=== PATIENT | female | born 1995 | race Caucasian/White ===

== ENCOUNTER 2021-05-17 18:44 | Emergency (ER) | payer SELFPAY ==
[~2021-05-17] VITALS: Ht 157.5 cm; Wt 63.5 kg
[~2021-05-17 18:44] MED LIST: IBUP-2213 PO
[2021-05-17 18:53] VITALS: BP 147/99
--- NOTE | 2021-05-17 19:04 | NUR ---
AMBULATED TO BED 11
--- NOTE | 2021-05-17 19:37 | NUR ---
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 PATIENT PRESENTS TO ED WITH INTERMITTENT PAIN AND DIARRHEA. PT CLAIMS NAUSEA AND DIARRHE W/O VOMITING; SKIN IS PINK/WARM/DRY; AAOX4 WITH EVEN AND STEADY GAIT; LUNGS CLEAR BL; HR EVEN AND REGULAR; PT DENIES ANY FEVER, CP, SOB, OR COUGH AT THIS TIME; PATIENT STATES PAIN OF 7/10 AT THIS TIME; VSS; PATIENT POSITIONED FOR COMFORT; HOB ELEVATED; BEDRAILS UP X2; BED DOWN. ER MD MADE AWARE OF PT STATUS. PT DENIES PMH, ALLERGIES, OR MEDS
--- NOTE | 2021-05-17 19:47 | NUR ---
ER MD AT BEDSIDE FOR PT EXAM
[2021-05-17] MEDS ORDERED: NACL 0.9% 1,000 ML IV ONE (19:50)
[2021-05-17] MEDS ORDERED: MORPHINE SULFATE 4 MG/ML SYR IVP ONE (19:50)
[2021-05-17 20:10] LABS: BASOPHILS # (AUTO) 0.1 K/uL (0.00-0.22); EOSINOPHILS # (AUTO) 0.1 K/uL (0-0.4); HEMATOCRIT 43.6 % (36-48); LYMPHOCYTES # (AUTO) 1.9 K/uL (2.5-16.5); MEAN CORPUSCULAR HEMOGLOBIN 28 pg (27-31); MEAN CORPUSCULAR HGB CONC 32 g/dL (33-37); MEAN CORPUSCULAR VOLUME 86.9 fL (80-94); MONOCYTES % (AUTO) 8.9 % (1.7-9.3); NEUTROPHILS # (AUTO) 8.6 K/uL (1.8-7.7); NEUTROPHILS % (AUTO) 73.1 % (42.2-75.2); PLATELET COUNT (AUTO) 323 K/uL (140-450); RED BLOOD CELL COUNT(AUTO) 5.01 MIL/uL (4.20-5.40); RED CELL DISTRIBUTION WIDTH 13.7 % (11.6-13.7); WHITE BLOOD COUNT (AUTO) 11.7 K/uL (4.8-10.8)
[2021-05-17 20:16] LABS: BILIRUBIN,URINE 1+ (NEGATIVE); BLOOD, URINE 3+ (NEGATIVE); COLOR,URINE YELLOW (YELLOW); LEUKOCYTE ESTERASE ,URINE TRACE (NEGATIVE); NITRITE, URINE NEGATIVE (NEGATIVE); UGLUCOSE NEGATIVE (NEGATIVE)
[2021-05-17 20:27] LABS: APPEARANCE,URINE HAZY (CLEAR)
[2021-05-17 20:30] LABS: RBC,URINE TOO NUMEROUS TO COUN /HPF (0-5); WBC,URINE 0-5 /HPF (0-5)
[2021-05-17 20:33] LABS: ALBUMIN 3.8 g/dL (3.4-5.0); ANION GAP 12.2 (8-16); CARBON DIOXIDE 24.5 mmol/L (21-32); CREATININE 0.8 mg/dL (0.6-1.3); POTASSIUM 3.7 mmol/L (3.5-5.1); TOTAL BILIRUBIN 0.3 mg/dL (0.0-1.0)
[2021-05-17] MEDS ORDERED: KETOROLAC 30 MG/ML VIAL IVP ONE (20:40)
[2021-05-17] MEDS ORDERED: TAMS0.4C96 PO (23:08)
[2021-05-17] MEDS ORDERED: IBUP-2213 PO (23:08)
[2021-05-17] MEDS ORDERED: ACET-8386 PO (23:08)
[2021-05-17 23:21] VITALS: BP 137/84
--- NOTE | 2021-05-17 23:21 | NUR ---
Patient discharged with v/s stable. Written and verbal after care instructions given and explained. Patient alert, oriented and verbalized understanding of instructions. Ambulatory with steady gait. All questions addressed prior to discharge. ID band removed. Patient advised to follow up with PMD. Rx of Hydrocodone/Acetaminophen, Ibuprofen, and Tamsulosin given. Patient educated on indication of medication including possible reaction and side effects. Opportunity to ask questions provided and answered. VSS, A/OX4, AMBULATORY, UNLABORED BREATHING, AND CALM DEMEANOR.
== END 2021-05-17 23:21 | disposition home or self-care (01) ==
LOC: MED 18:44
DX: R10.9 Unspecified abdominal pain (principal); R11.0 Nausea; R19.7 Diarrhea, unspecified
CPT/HCPCS: 36415; 74176; 80053; 81001; 81025; 84703; 85025; 87086; 96361; 96374; 96375; 99284; J1885; J2270; J7030

== ENCOUNTER 2021-06-29 09:54 | Emergency (ER) | payer SELFPAY ==
[~2021-06-29] VITALS: Ht 157.5 cm; Wt 62.6 kg
[~2021-06-29 09:54] MED LIST changes: +ACET-8386 PO; +TAMS0.4C96 PO
[2021-06-29 10:03] VITALS: BP 141/104
[2021-06-29] MEDS ORDERED: ONDANSETRON 4 MG/2 ML VIAL IVP ONE (10:25)
[2021-06-29] MEDS ORDERED: KETOROLAC 15 MG/ML VIAL IVP ONE (10:25)
[2021-06-29] MEDS ORDERED: NACL 0.9% 2,000 ML IV ONE (10:25)
--- NOTE | 2021-06-29 10:41 | NUR ---
25/F BIB SELF C/O LEFT SIDED FLANK PAIN SINCE THIS MORNING. STATES SHE WAS TOLD A FEW WEEKS AGO SHE HAD A KIDNEY STONE, STATES "I THINK ITS PASSING." REPORTING N/V THIS MORNING. SKIN IS PINK/WARM/DRY; AAOX4 WITH EVEN AND STEADY GAIT; LUNGS CLEAR BL; HR EVEN AND REGULAR; PT DENIES ANY FEVER, CP, SOB, OR COUGH AT THIS TIME; VSS; PATIENT POSITIONED FOR COMFORT; HOB ELEVATED; BEDRAILS UP X2; BED DOWN. ER MD MADE AWARE OF PT STATUS. MEDHX: DENIES ALLERGIES: NKA
[2021-06-29 11:09] LABS: BASOPHILS # (AUTO) 0.1 K/uL (0.00-0.22); BASOPHILS % (AUTO) 0.4 % (0.0-2.0); EOSINOPHILS # (AUTO) 0.1 K/uL (0-0.4); EOSINOPHILS % (AUTO) 0.4 % (0.0-4.0); HEMATOCRIT 43.7 % (36-48); HEMOGLOBIN 14.5 g/dL (12.0-16.0); LYMPHOCYTES # (AUTO) 1.8 K/uL (2.5-16.5); LYMPHOCYTES % (AUTO) 13.7 % (20.5-51.1); MEAN CORPUSCULAR HEMOGLOBIN 29 pg (27-31); MEAN CORPUSCULAR HGB CONC 33 g/dL (33-37); MEAN CORPUSCULAR VOLUME 86.3 fL (80-94); MONOCYTES # (AUTO) 0.5 K/uL (0.8-1.0); NEUTROPHILS # (AUTO) 10.9 K/uL (1.8-7.7); NEUTROPHILS % (AUTO) 81.5 % (42.2-75.2); PLATELET COUNT (AUTO) 346 K/uL (140-450); RED BLOOD CELL COUNT(AUTO) 5.06 MIL/uL (4.20-5.40); RED CELL DISTRIBUTION WIDTH 13.4 % (11.6-13.7); WHITE BLOOD COUNT (AUTO) 13.4 K/uL (4.8-10.8)
[2021-06-29 11:24] LABS: ALBUMIN 3.9 g/dL (3.4-5.0); ANION GAP 12.3 (8-16); CARBON DIOXIDE 25.6 mmol/L (21-32); CREATININE 0.8 mg/dL (0.6-1.3); POTASSIUM 3.9 mmol/L (3.5-5.1); TOTAL BILIRUBIN 0.3 mg/dL (0.0-1.0)
[2021-06-29] MEDS ORDERED: TAMS0.4C96 PO (11:41)
[2021-06-29] MEDS ORDERED: NAPR-54 PO (11:41)
[2021-06-29] MEDS ORDERED: ONDA-188 SL (12:01)
--- NOTE | 2021-06-29 12:08 | NUR ---
IV removed, catheter intact and site benign. Applied folded 4x4 gauze and tape to stop bleeding.
[2021-06-29 12:09] VITALS: BP 113/55
--- NOTE | 2021-06-29 12:09 | NUR ---
Patient discharged with v/s stable. Written and verbal after care instructions ABOUT KIDNEY STONES given and explained. Patient alert, oriented and verbalized understanding of instructions. Ambulatory with steady gait. All questions addressed prior to discharge. ID band removed. Patient advised to follow up with PMD. Rx of NAPROXEN AND FLOMAX given. Patient educated on indication of medication including possible reaction and side effects. Opportunity to ask questions provided and answered.
== END 2021-06-29 12:09 | disposition home or self-care (01) ==
LOC: MED 09:54
DX: N20.0 Calculus of kidney (principal); R11.10 Vomiting, unspecified; Z79.1 Long term (current) use of non-steroidal anti-inflammatories (NSAID); Z79.899 Other long term (current) drug therapy; Z79.891 Long term (current) use of opiate analgesic
CPT/HCPCS: 36415; 80053; 81002; 81025; 83690; 85025; 96361; 96374; 96375; 99284; J1885; J2405; J7030